=== PATIENT | male | born 1940 | race Caucasian/White ===

== ENCOUNTER 2022-10-02 05:11 | Day surgery (SDC) | payer BC, MEDICARE, SELFPAY ==
--- NOTE | 2022-09-29 18:56 | CASEMGMT ---
Social Work 09.28.22 at approximately 1730 This job specification writer received notice from Michelle at Dr. Whitfield's office, concern that patient has shared with staff that has no one willing to call to assist with ride and care upon returning home. Patient reportedly had history of similar intervention at another healthcare institution, and drove self home after telling staff that had a ride. This job specification writer called patient who answered the phone. Patient reports has arranged for a ride to and from the hospital, after being told this is a policy of the hospital. Patient reports this policy is inconvenient to the patient, as patient did feels he is inconveniencing others by asking for help. Patient states to this job specification writer, that no matter what is found after procedure on Sunday will never have a similar procedure as does not like the policy of having to get rides. This job specification writer reinforced with patient that the person who is coming to get the patient after the procedure will have to go back to AC area, to patient's room, and be present at discharge. Patient reported agreement. -GLORIA Wills
[2022-10-02] MEDS: Lactated Ringers 1,000 ML 15 ML IV (05:45)
[2022-10-02 05:54] VITALS: BP 139/87; PULSE 73; RESP 18; TEMP 36.1; O2SAT 100; BMI 25.0
--- NOTE | 2022-10-02 06:30 | COLBX_PTH ---
PATIENT: BHAVANA RUSSELL Jr. LOC: EN U#:[id number] AGE/SX: 81/M ROOM: RE10/02/[address]: Dr. Raymundo Whitfield DO : 1940 BED: DIS: 10/02/2022 SPEC #: [id number] RECD: 10/02/22 08:12 STATUS: FORTUNATO REYeimi #: [id number] ERIKA: 10/02/22 06:[address]: Raymundo Whitfield DEPT: SURGICAL PATHOLOGY RECD BY: Lynette Alex ENTERED: 10/02/22 11:14 SP TYPE: COLON BX OTHR DR: Dr. Enmanuel Mederos DO Tissues: Cecum, NOS Procedures: Surgery Specimen Level IV HEADER OPERATION: Colonoscopy with biopsy (MAC) PRE-OP DIAGNOSIS: Cecum polyp TISSUE SUBMITTED: Cecum polyp biopsy MICROSCOPIC DIAGNOSIS Cecum polyp, biopsy: Tubular adenoma. EMANI:kian 10/03/2022 MICROSCOPIC DESCRIPTION Slides are reviewed. GROSS DESCRIPTION Received in fixative is one container labeled with the patient's name and designated cecum polyp biopsy. The specimen consists of one irregular fragment of light soler soft tissue that measures 0.3 x 0.3 x 0.1 cm. The specimen is totally submitted in one cassette. / SJ:kian 10/02/2022 TC:1 CPT: 84236
--- NOTE | 2022-10-02 06:33 | HP.PCM_ITS ---
History and Physical Date of Admission: 10/02/22 BHAVANA RUSSELL, is a 81 M who presents to the office today for initial consult. PCP OV 03.02.22, 04.21.22 as f/u??for HTN, alcohol use, elevated LFT with one episode elevated t.bili 1.1, enlarged thyroid, hyperlipidemia.?Biochemical?CMP, TIBC?AST H53-ALT H117-AP 78, Iron L62? 05.26.22 US RUQ- heterogenous and mildly hypoechoic pancreas Pt recently established with new PCP. Stated his iron was low and was started on Ferrous Sulfate. Reports negative hx of anemia, GIB, or liver disease. No GI sx currently including abdominal pain, HB, nausea or bowel issues. BM regular. Denied dark or bloody stools. ROS Const Constitutional: No fatigue Eyes Eyes: No change in vision ENT ENT: No abnormal hearing or difficulty swallowing Resp Respiratory: No cough or shortness of breath Cardio Cardiology: No chest pain at rest, chest pain with exertion, shortness of breath or dyspnea on exertion Gastro GI: No abdominal pain, belching, bloating, change in bowel habits, change in stool character, coffee ground emesis, constipation, cramping, diarrhea, heartburn, difficulty swallowing, feeling full early, excessive flatus, incontinent of stools, Vomiting blood I have examined the patient and the H&P has been reviewed. There are no clinical changes since date of exam./shade temesis, Blood in stool, loose stools, Black,tarry stools, nausea/dyspepsia, pain with swallowing, vomiting or other Genitourinary Male: No difficulty urinating or burning urination Musc Musculoskeletal: Positive for joint pain and Arthritis Skin Skin: No yellowing of the eye or itchy eyes Neuro Neurology: No abnormal hearing, abnormal movements, confusion, unsteady gait/balance or memory loss Psych Psychiatric: No anxiety, No confusion, No depression and No memory loss Endo Endocrine: No fatigue Aller/Imm Allergy/Immunologic: No itchy eyes Shade/Lymp Hematologic/Lymphatic: No easy bleeding or easy bruising Quality Reporting Tobacco Screening ([facility] 138) Smoking Status: Never smoker Assessment and Plan Assessment and Plan (1) Anemia: Status: Acute Plan: Differential diagnosis for his anemia does include aspirin induced gastritis, esophagitis, duodenitis, colitis. Also give diagnosis includes angiodysplasia, less likely malignancy, celiac disease. He will undergo colonoscopy and possible upper endoscopy to evaluate his GI tract for any signs of GI blood loss leading to anemia. He was explained alternatives, risk, benefits including outstanding bleeding, infection, sepsis, perforation, need for emergent surgery . Have an ASA of 3.
[2022-10-02 07:05] VITALS: BP 105/73; BP 139/87; PULSE 70; RESP 16; TEMP 36.1; O2SAT 100
--- NOTE | 2022-10-02 07:07 | OP.COLON_ITS ---
Patient Name: Oumar Ayala Procedure Date: 10/02/2022 6:09 AM Date of : 1940 Age: 81 Procedure: Colonoscopy Indications: Screening for colorectal malignant neoplasm Providers: Raymundo Whitfield DO Referring MD: Raymundo Whitfield DO Medicines: Monitored Anesthesia Care Patient Profile: This is a 81 year old male. Refer to note in patient chart for documentation of history and physical. Last Colonoscopy: date unknown. Unable to locate last colonoscopy report. Complications: No immediate complications. Procedure: Pre-Anesthesia Assessment: - Prior to the procedure, a History and Physical was performed, and patient medications and allergies were reviewed. The patient is competent. The risks and benefits of the procedure and the sedation options and risks were discussed with the patient. All questions were answered and informed consent was obtained. Patient identification and proposed procedure were verified by the physician in the pre-procedure area. Mental Status Examination: alert and oriented. Airway Examination: normal oropharyngeal airway and neck mobility. Respiratory Examination: clear to auscultation. CV Examination: normal. Prophylactic Antibiotics: The patient does not require prophylactic antibiotics. Prior Anticoagulants: The patient has taken no anticoagulant or antiplatelet agents. ASA Grade Assessment: II - A patient with mild systemic disease. After reviewing the risks and benefits, the patient was deemed in satisfactory condition to undergo the procedure. The anesthesia plan was to use monitored anesthesia care (MAC). Immediately prior to administration of medications, the patient was re-assessed for adequacy to receive sedatives. The heart rate, respiratory rate, oxygen saturations, blood pressure, adequacy of pulmonary ventilation, and response to care were monitored throughout the procedure. The physical status of the patient was re-assessed after the procedure. After I obtained informed consent, the scope was passed under direct vision. Throughout the procedure, the patient's blood pressure, pulse, and oxygen saturations were monitored continuously. The pediatric colonoscope was introduced through the anus and advanced to the terminal ileum. The colonoscopy was performed without difficulty. The patient tolerated the procedure well. The quality of the bowel preparation was adequate. The terminal ileum, ileocecal valve, appendiceal orifice, and rectum were photographed. Scope In: 6:40:40 AM Scope Withdrawal Time 0 hours 12 minutes 43 seconds Scope Out: 6:59:43 AM Total Procedure Duration Time 0 hours 19 minutes 3 seconds Findings: The perianal and digital rectal examinations were normal. A 4 mm polyp was found in the cecum. The polyp was sessile. The polyp was removed with a cold snare. Resection and retrieval were complete. Verification of patient identification for the specimen was done. Estimated blood loss was minimal. A few small-mouthed diverticula were found in the sigmoid colon. The exam was otherwise without abnormality on direct and retroflexion views. Impression: - One 4 mm polyp in the cecum, removed with a cold snare. Resected and retrieved. - Diverticulosis in the sigmoid colon. - The examination was otherwise normal on direct and retroflexion views. Recommendation: - Discharge patient to home. - Resume previous diet. - Continue present medications. - Await pathology results. - Repeat colonoscopy in 5 years for surveillance. Procedure Code(s): --- Professional --- 04522, Colonoscopy, flexible; with removal of tumor(s), polyp(s), or other lesion(s) by snare technique CPT copyright 2021 [employer] [place] [employer]. All rights reserved. The codes documented in this report are preliminary and upon freezer assistant review may be revised to meet current compliance requirements. Raymundo Whitfield DO 10/02/2022 7:06:02 AM This report has been signed electronically. Number of Addenda: 0 Note Initiated On: 10/02/2022 6:09 AM
--- NOTE | 2022-10-02 07:07 | OP.CCLET_ITS ---
10/02/2022 Enmanuel Mederos Do Re : Colonoscopy procedure for Oumar Ayala Dear Rosa M This procedure was performed on Sunday, October 02, 2022. My impressions and recommendations are as follows: Impressions : - One 4 mm polyp in the cecum, removed with a cold snare. Resected and retrieved. - Diverticulosis in the sigmoid colon. - The examination was otherwise normal on direct and retroflexion views. Recommendations : - Discharge patient to home. - Resume previous diet. - Continue present medications. - Await pathology results. - Repeat colonoscopy in 5 years for surveillance. My findings are described in the full procedure note, which is enclosed. If I can be of further assistance, please feel free to contact me at . Sincerely, Raymundo Whitfield, 10/02/2022 7:06:02 AM This report has been signed electronically.
[2022-10-02 07:10] VITALS: BP 110/80; BP 139/87; PULSE 70; RESP 16; O2SAT 99
[2022-10-02 07:15] VITALS: BP 124/98; BP 139/87; PULSE 72; RESP 18; O2SAT 100
[2022-10-02 07:20] VITALS: BP 132/92; BP 139/87; PULSE 64; RESP 18; TEMP 36.2; O2SAT 100
[2022-10-02 07:37] VITALS: BP 139/87
== END 2022-10-02 08:03 | disposition home or self-care (01) ==
LOC: EN 05:13 → AC 05:16
PROVIDERS: PCP Student in an Organized Health Care Education/Training Program; Referring Provider Internal Medicine Gastroenterology; Visit Provider Internal Medicine Gastroenterology
PROC: 0DJD8ZZ Inspection of Lower Intestinal Tract, Via Natural or Artificial Opening Endoscopic (ICD-10-PCS; CPT 45378; principal; 2022-10-02 06:25)
DX: Z12.11 Encounter for screening for malignant neoplasm of colon (principal); K57.30 Diverticulosis of large intestine without perforation or abscess without bleeding; D64.9 Anemia, unspecified; D12.0 Benign neoplasm of cecum
CPT/HCPCS: 45385; 88305; J7120; J2405

== ENCOUNTER → 2023-05-11 | Outpatient (CLI) | payer BC, MEDICARE, SELFPAY ==
--- NOTE | 2023-05-11 14:53 | CT_ITS ---
STUDY: CT FACIAL BONES WITHOUT CONTRAST REASON FOR EXAM: Male, 82 years old. Polyp of nasal cavity RADIATION DOSAGE (If Supplied By Facility): CTDIvol = ( 28.14 ) mGy, DLP = ( 746.19 ) mGycm TECHNIQUE: The patient was scanned in a multi detector CT scanner. Sagittal and coronal images were reconstructed. Individualized dose optimization techniques were used for this CT. COMPARISON: None. FINDINGS: Normal soft tissue structures. Normal orbital schwartz and orbital contents. Normal nasal bones and anterior nasal spine. Normal facial bones. There is no demonstrated fracture. Air-fluid level right maxillary sinus. Mucosal thickening left maxillary sinus. CT/Sinus/Facial Bone IMPRESSION: Maxillary sinusitis. No nasal polyp identified. Electronically Signed: Efren Leone MD at 22:49 EDT ,
== END | disposition home or self-care (01) ==
LOC: CT 14:53
PROVIDERS: PCP Student in an Organized Health Care Education/Training Program; Referring Provider Otolaryngology; Visit Provider Otolaryngology
DX: J33.0 Polyp of nasal cavity (principal)
CPT/HCPCS: 70486